=== PATIENT | male | born 1955 | race Caucasian/White ===

== ENCOUNTER 2018-02-13 08:59 | Outpatient (RCR) | payer BC ==
[2018-01-22] MEDS: NS(*) 0.9% 100 ML BAG 100 ML IVPB PRN (10:37)
[2018-01-22 10:45] VITALS: BP 123/57
[2018-01-23 09:13] VITALS: BP 114/61
[2018-01-23] MEDS: NS(*) 0.9% 100 ML BAG 100 ML IVPB PRN (09:22)
[2018-01-23 09:27] LABS: PLATELET COUNT, AUTOMATED 571 K/uL (150-450)
[2018-01-30 09:11] VITALS: BP 108/64
[2018-01-30 09:27] LABS: PLATELET COUNT, AUTOMATED 441 K/uL (150-450)
[2018-02-06 11:39] LABS: PLATELET COUNT, AUTOMATED 255 K/uL (150-450)
[~2018-02-13 08:59] MED LIST: ALTEPLASE RECOMB 2 MG VIAL IVP PRN; DEXTROSE 5%(*) 100 ML BAG 100 ML IVPB PRN; LIS10 PO; NS(*) 0.9% 500 ML BAG 500 ML IV PRN; WATER FOR INJ,STERILE 20 ML IVP PRN; cefTRIAXone(*) 2 GM VIAL 2 GM in NS(*) 0.9% 100 ML ADDVANT BAG 100 ML IVPB SCH
[2018-02-13 09:39] LABS: PLATELET COUNT, AUTOMATED 248 K/uL (150-450)
== END 2018-02-15 09:36 | disposition home or self-care (01) ==
LOC: SPU 08:59
PROVIDERS: ATTEND Internal Medicine Infectious Disease
DX: R78.81 Bacteremia (principal); M25.551 Pain in right hip
CPT/HCPCS: 36592; 85025; 86140; 96365; 96374; J0696; J1642; J2997; J7050; 82040; 82247; 82310; 82374; 82435; 82565; 82947; 84075; 84132; 84155; 84295; 84450; 84460; 84520

== ENCOUNTER → 2018-03-20 | Outpatient (CLI) | payer BC ==
[~2018-03-20] MED LIST changes: -ALTEPLASE RECOMB 2 MG VIAL IVP PRN; -DEXTROSE 5%(*) 100 ML BAG 100 ML IVPB PRN; -NS(*) 0.9% 500 ML BAG 500 ML IV PRN; -WATER FOR INJ,STERILE 20 ML IVP PRN; -cefTRIAXone(*) 2 GM VIAL 2 GM in NS(*) 0.9% 100 ML ADDVANT BAG 100 ML IVPB SCH
[2018-03-20 14:08] LABS: PLATELET COUNT, AUTOMATED 365 K/uL (150-450)
[2018-03-20 14:26] VITALS: BP 148/84
== END ==
LOC: SPU 13:28
PROVIDERS: ATTEND Internal Medicine Infectious Disease
DX: T84.51XA Infection and inflammatory reaction due to internal right hip prosthesis, initial encounter (principal); M16.10 Unilateral primary osteoarthritis, unspecified hip; Z86.19 Personal history of other infectious and parasitic diseases; Z96.642 Presence of left artificial hip joint
CPT/HCPCS: 36592; 82040; 82247; 82310; 82374; 82435; 82565; 82947; 84075; 84132; 84155; 84295; 84450; 84460; 84520; 85025; 86140

== ENCOUNTER 2018-05-09 11:50 | Outpatient (RCR) | payer BC ==
[2018-02-20 10:11] LABS: PLATELET COUNT, AUTOMATED 311 K/uL (150-450)
[2018-02-28 08:41] VITALS: BP 114/86
[2018-02-28 08:52] LABS: PLATELET COUNT, AUTOMATED 314 K/uL (150-450)
[2018-03-28 08:34] VITALS: BP 116/97
[2018-03-28 09:38] LABS: PLATELET COUNT, AUTOMATED 388 K/uL (150-450)
[2018-04-03 14:38] VITALS: BP 132/69
[2018-04-03 15:30] LABS: PLATELET COUNT, AUTOMATED 373 K/uL (150-450)
[2018-04-13 12:10] VITALS: BP 74/47
[2018-04-13 12:23] LABS: PLATELET COUNT, AUTOMATED 258 K/uL (150-450)
--- NOTE | 2018-04-14 11:34 | RADIOLOGY IMAGING REPORT ---
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 COMPARISON: None PROCEDURE: Informed written consent was obtained. A timeout was performed and the procedure room. The bilatera l arm basilic veins were assessed with ultrasound, and they are normal size, compressible and clear o f thrombus. The right arm basilic vein was selected for PICC placement because of left arm erythema secondary to dermatitis. The right arm was prepped and draped in a sterile fashion. Lidocaine 1 per cent was used for skin and subcutaneous local anesthesia. Using ultrasound guidance, a micropuncture needle was inserted into the mid arm basilic vein. An ul trasound image demonstrating the needle and guidewire within the vein was captured and stored on PACS . A guidewire was advanced through the needle to the SVC-right atrium junction using fluoroscopy lois dance. The needle was exchanged with a peel-away sheath. The guidewire was removed, and the PICC wa s cut to 47.5 cm length. The 5-[place] single lumen power PICC was advanced through the sheath to the atrial caval junction using fluoroscopy guidance. The peel-away sheath was removed. The PICC was secured to the skin and covered using an adhesive ban dage. The patient tolerated the procedure well and there were no complications. IMPRESSION: Successful ultrasound-guided and fluoroscopy-guided PICC placement into the right mid arm basilic vei n. The tip of the catheter is at the atrial-caval junction, and it is ready for use. Fluoroscopy time: 1.3 minute DAP: 343.04 uGym2 Report Dictated By: Donita Louis MD at 04/14/2018 11:24 AM Report E-Signed By: Donita Louis MD at 04/14/2018 11:29 AM WSN:[id number]
--- NOTE | 2018-04-14 11:35 | RADIOLOGY IMAGING REPORT ---
FACILITY: [facility] PATIENT NAME: Alexandro Todd : 1955 MR: [id number] V: [id number] EXAM DATE: ORDERING PHYSICIAN: LIZZIE OMER TECHNOLOGIST: Location: [facility] Patient: Alexandro Todd : 1955 Visit/Account:[id number] Date of Sevice: 04/14/2018 PICC placement using ultrasound and fluoroscopy guidance HISTORY: Hip prosthesis infection. Need for long-term intravenous antibiotic therapy. COMPARISON: None PROCEDURE: Informed written consent was obtained. A timeout was performed and the procedure room. The bilatera l arm basilic veins were assessed with ultrasound, and they are normal size, compressible and clear o f thrombus. The right arm basilic vein was selected for PICC placement because of left arm erythema secondary to dermatitis. The right arm was prepped and draped in a sterile fashion. Lidocaine 1 per cent was used for skin and subcutaneous local anesthesia. Using ultrasound guidance, a micropuncture needle was inserted into the mid arm basilic vein. An ul trasound image demonstrating the needle and guidewire within the vein was captured and stored on PACS . A guidewire was advanced through the needle to the SVC-right atrium junction using fluoroscopy lois dance. The needle was exchanged with a peel-away sheath. The guidewire was removed, and the PICC wa s cut to 47.5 cm length. The 5-[place] single lumen power PICC was advanced through the sheath to the atrial caval junction using fluoroscopy guidance. The peel-away sheath was removed. The PICC was secured to the skin and covered using an adhesive ban dage. The patient tolerated the procedure well and there were no complications. IMPRESSION: Successful ultrasound-guided and fluoroscopy-guided PICC placement into the right mid arm basilic vei n. The tip of the catheter is at the atrial-caval junction, and it is ready for use. Fluoroscopy time: 1.3 minute DAP: 343.04 uGym2 Report Dictated By: Donita Louis MD at 04/14/2018 11:24 AM Report E-Signed By: Donita Louis MD at 04/14/2018 11:29 AM WSN:JW
[2018-04-20 12:26] VITALS: BP 113/76
[2018-04-20 12:33] LABS: PLATELET COUNT, AUTOMATED 223 K/uL (150-450)
[~2018-05-09 11:50] MED LIST changes: +ALTEPLASE RECOMB 2 MG VIAL IVP PRN; +DEXTROSE 5%(*) 100 ML BAG 100 ML IVPB PRN; +NS(*) 0.9% 100 ML BAG 100 ML IVPB PRN; +NS(*) 0.9% 500 ML BAG 500 ML IV PRN; +WATER FOR INJ,STERILE 20 ML IVP PRN
[2018-05-09 12:11] LABS: PLATELET COUNT, AUTOMATED 215 K/uL (150-450)
== END 2018-05-17 08:34 | disposition home or self-care (01) ==
LOC: SPU 11:50
PROVIDERS: ATTEND Internal Medicine Infectious Disease
DX: R78.81 Bacteremia (principal); M25.551 Pain in right hip; M76.01 Gluteal tendinitis, right hip; B95.1 Streptococcus, group B, as the cause of diseases classified elsewhere
CPT/HCPCS: 36415; 36592; 36593; 85025; 86140; 96365; C1751; J1642; J2997; 36569; 76937; 82040; 82247; 82310; 82374; 82435; 82565; 82947; 84075; 84132; 84155; 84295; 84450; 84460; 84520

== ENCOUNTER 2018-07-18 12:30 | Outpatient (RCR) | payer BC ==
[2018-05-23 12:35] VITALS: BP 144/85
[2018-05-23 13:10] LABS: PLATELET COUNT, AUTOMATED 228 K/uL (150-450)
[2018-06-06 12:34] VITALS: BP 136/79
[2018-06-06 12:57] LABS: PLATELET COUNT, AUTOMATED 206 K/uL (150-450)
[2018-06-20 12:23] VITALS: BP 126/76
[2018-06-20 12:39] LABS: PLATELET COUNT, AUTOMATED 237 K/uL (150-450)
[2018-07-04 12:42] VITALS: BP 137/80
[2018-07-04 16:15] LABS: PLATELET COUNT, AUTOMATED 174 K/uL (150-450)
[~2018-07-18 12:30] MED LIST changes: -ALTEPLASE RECOMB 2 MG VIAL IVP PRN; -DEXTROSE 5%(*) 100 ML BAG 100 ML IVPB PRN; -NS(*) 0.9% 100 ML BAG 100 ML IVPB PRN; -NS(*) 0.9% 500 ML BAG 500 ML IV PRN; -WATER FOR INJ,STERILE 20 ML IVP PRN
[2018-07-18 12:45] VITALS: BP 147/87
[2018-07-18 12:49] LABS: PLATELET COUNT, AUTOMATED 193 K/uL (150-450)
== END 2018-08-20 ==
LOC: SPU 12:30
PROVIDERS: ATTEND Internal Medicine Infectious Disease
DX: T84.59XA Infection and inflammatory reaction due to other internal joint prosthesis, initial encounter (principal); M25.551 Pain in right hip; M76.01 Gluteal tendinitis, right hip; B95.1 Streptococcus, group B, as the cause of diseases classified elsewhere; R78.81 Bacteremia
CPT/HCPCS: 36415; 82040; 82247; 82310; 82374; 82435; 82565; 82947; 84075; 84132; 84155; 84295; 84450; 84460; 84520; 85025; 86140